=== PATIENT | female | born 1975 | race Two or more races ===

== ENCOUNTER 2021-02-16 14:50 | Emergency (ER) | payer MEDICAID ==
[~2021-02-16] VITALS: Ht 165.1 cm; Wt 84.4 kg
--- NOTE | 2021-02-16 15:15 | NUR ---
BIBRA TO ER BED 3.AAOX4. NOT IN RESP DISTRESS. BROUGHT IN FOR L HIP PAIN S/P SLIP AND FELL. PT DENIED KO. PAIN IS 8/10. NEGATIVE FOR SHORTENING NOR ROTATION. MD WAS AT THE BESIDE FOR EVAL. ORDERS RECEIVED, NOTED NAD CARRIED OUT
[2021-02-16] MEDS ORDERED: HYDROCODONE/APAP 10/325MG TABLET ONE (15:20)
[2021-02-16] MEDS ORDERED: HYDROCODONE/APAP 10/325MG TABLET PO ONE (15:30)
--- NOTE | 2021-02-16 15:59 | NUR ---
PT WAS ASSISTED TO AMBULATE TO THE RESTROOM. PT ABLE TO WALK BUT LIMPING D/T PAIN
[2021-02-16] MEDS ORDERED: HYDR-3976 GT (16:07)
--- NOTE | 2021-02-16 16:22 | NUR ---
Patient discharged to home in stable condition. Written and verbal after care instructions given. Patient verbalizes understanding of instruction. Pt ambulatory with a steady gait but w/ an aide of a pair of crutches.
[2021-02-16 16:38] VITALS: BP 137/77
== END 2021-02-16 16:39 | disposition home or self-care (01) ==
LOC: ER 14:52
DX: M79.605 Pain in left leg (principal); M25.562 Pain in left knee; M25.572 Pain in left ankle and joints of left foot; M25.552 Pain in left hip; R22.42 Localized swelling, mass and lump, left lower limb; J45.909 Unspecified asthma, uncomplicated; Z79.899 Other long term (current) drug therapy; W19.XXXA Unspecified fall, initial encounter; Y93.89 Activity, other specified; Y92.89 Other specified places as the place of occurrence of the external cause; Y99.8 Other external cause status
CPT/HCPCS: 73502; 73564-TC; 73610-TC